=== PATIENT | female | born 1990 | race Two or more races ===

== ENCOUNTER → 2022-10-02 | Emergency (ER) | payer OTHER ==
[~2022-10-02] VITALS: Ht 154.9 cm; Wt 76.7 kg
[~2022-10-02] MED LIST: PROTONIX40 MG PO
== END | disposition home or self-care (01) ==
LOC: ER 08:23
DX: M25.561 Pain in right knee (principal)

== ENCOUNTER → 2022-11-11 | Emergency (ER) | payer OTHER ==
[~2022-11-11] VITALS: Ht 154.9 cm; Wt 81.6 kg
== END | disposition left against medical advice (07) ==
LOC: ER 21:35
DX: K29.70 Gastritis, unspecified, without bleeding (principal); Z91.013 Allergy to seafood

== ENCOUNTER → 2022-12-20 | Emergency (ER) | payer OTHER ==
[~2022-12-20] VITALS: Ht 162.6 cm; Wt 59.0 kg
[~2022-12-20] MED LIST changes: +TRANXENE T-TAB7.5 MG
== END | disposition left against medical advice (07) ==
LOC: ER 14:46
DX: Z53.21 Procedure and treatment not carried out due to patient leaving prior to being seen by health care provider (principal)

== ENCOUNTER 2024-08-06 15:03 | Emergency (ER) | payer OTHER ==
[~2024-08-06] VITALS: Ht 154.9 cm; Wt 68.9 kg
[2024-08-06] MEDS ORDERED: CLONAZEPAM0.5 MG PO (15:19)
[2024-08-06] MEDS ORDERED: 0.9 % SODIUM CHLORIDE 500 ML IV ONE (16:15)
[2024-08-06] MEDS ORDERED: BENZONATATE 100 MG CAPSULE PO ONE (16:15)
[2024-08-06] MEDS ORDERED: LORATADINE 10 MG TABLET PO ONE (16:15)
[2024-08-06 16:40] LABS: HEMATOCRIT 36.5 % (36.0-45.00); HEMOGLOBIN 12.2 g/dL (12.0-15.00); MEAN CELL VOLUME 81.5 fL (80.00-100.00); MEAN CORPUSCULAR HEMOGLOBIN 27.2 pg (27.00-32.0); MEAN CORPUSCULAR HGB CONC 33.3 g/dl (32.0-36.0); PLATELET COUNT 282 K/uL (150-450); RED BLOOD COUNT 4.47 M/uL (4.00-6.00); RED CELL DISTRIBUTION WIDTH 15.7 % (11.5-14.5)
[2024-08-06 17:20] VITALS: BP 110/60; O2SAT 97
== END 2024-08-06 17:21 | disposition home or self-care (01) ==
LOC: ER 15:04
PROVIDERS: General Practice
DX: J00 Acute nasopharyngitis [common cold] (principal); F41.8 Other specified anxiety disorders; Z91.013 Allergy to seafood; Z20.822 Contact with and (suspected) exposure to COVID-19

== ENCOUNTER 2024-11-09 09:58 | Emergency (ER) | payer OTHER ==
[~2024-11-09] VITALS: Ht 154.9 cm; Wt 68.0 kg
[~2024-11-09 09:58] MED LIST changes: +CLONAZEPAM0.5 MG PO
== END 2024-11-09 11:54 | disposition home or self-care (01) ==
LOC: ER 10:01
DX: R05.8 Other specified cough (principal); Z91.013 Allergy to seafood

== ENCOUNTER → 2025-03-01 | Emergency (ER) | payer OTHER ==
[~2025-03-01] VITALS: Ht 154.9 cm; Wt 68.0 kg
[~2025-03-01] MED LIST changes: +TOPROL XL25 M1
== END | disposition left against medical advice (07) ==
LOC: ER 03:11
DX: Z53.21 Procedure and treatment not carried out due to patient leaving prior to being seen by health care provider (principal)